=== PATIENT | male | born 1950 | race Caucasian/White ===

== ENCOUNTER 2018-10-19 07:43 | Day surgery (SDC) | payer MEDICARE ==
[2018-10-17 10:50] VITALS: BMI 27.9
[~2018-10-19 07:43] MED LIST: LACTATED RINGERS 1,000 ML IV SCH
[2018-10-19 08:42] VITALS: RESP 16; TEMP 98.1
[2018-10-19] MEDS ORDERED: LIDOCAINE 1% 20 ML VIAL (10MG/ML) FOR IV START INTRADERMA ONE (08:45)
[2018-10-19] MEDS ORDERED: LIDOCAINE 1% INJ 10MG/ML (20 ML MDV) ONE (09:15)
[2018-10-19] MEDS ORDERED: PROPOFOL 10 MG/ML 20 ML VIAL IV ONE (09:15)
--- NOTE | 2018-10-19 09:49 | P.PCN ---
Date of Procedure: 10/19/18 Procedure(s) Performed: Procedure: Colonoscopy and polypectomy. Preoperative diagnosis: Positive cologuard. Postoperative diagnosis: 1. Small rectal polyp snared but no large polyps or cancer. 2. Low-grade internal hemorrhoids without bleeding at the time of this exam. Preparation: HalfLytely prep. Sedation: Was provided by anesthesia. Brief clinical history: The patient is a 68-year-old male who is scheduled for this evaluation because of finding of positive cologuard. The patient has no prior colonoscopy. He had no abdominal complaints, overt bleeding or anemia. Procedure: With the patient on his left lateral decubitus position and after informed consent and adequate sedation, the perianal area was inspected and it did not show any fissures or fistulas. There were no masses felt on digital rectal examination. The Olympus CFH 190L video colonoscope was then inserted in the rectum in the usual fashion and advanced to the cecum. The mucosa appeared healthy. There was a small rectal polyp which was snared and retrieved by suction but there were no large polyps or cancer. I retroflexed the endoscope in the rectum before the endoscope was withdrawn. Low-grade internal hemorrhoids were noted with no evidence of bleeding. The patient tolerated the procedure well. Plan: The patient was reassured. Consideration can be given for a repeat exam in 5 years. In the absence of upper GI complaints or anemia, I did not recommend upper GI workup at this time and that can be kept as a contingency based on his clinical course. He will follow up with you as planned.
[2018-10-19 10:09] VITALS: BP 122/77; PULSE 69
== END 2018-10-19 10:30 | disposition home or self-care (01) ==
LOC: ORWHC2ENDO 07:43
DX: D12.8 Benign neoplasm of rectum (principal); K64.8 Other hemorrhoids; I10 Essential (primary) hypertension; Z79.899 Other long term (current) drug therapy
CPT/HCPCS: 88305; 45385; J2001; J2704